=== PATIENT | female | born 1985 | race Caucasian/White ===

== ENCOUNTER 2023-08-24 13:52 | Emergency (ER) | payer OTHER, SELFPAY ==
[2023-08-24 13:57] VITALS: BP 130/78; PULSE 105; RESP 18; TEMP 36.7; O2SAT 96; BMI 30.9
[2023-08-24 14:11] LABS: Appearance Urine Cloudy (Clear); Bilirubin Urine Negative (Negative); Blood Urine 3+ (Negative); Color Urine Yellow (Yellow); Glucose Urine Negative (Negative); Ketones Urine Negative (Negative); Leukocyte Esterase Urine 1+ (Negative); Nitrite Urine Positive (Negative); Protein Urine 1+ (Negative); Specific Gravity Urine >= 1.030 (1.000-1.030); Urobilinogen Urine 0.2 (0.2-1.0)
[2023-08-24 14:21] LABS: Bacteria Urine Many; RBC Urine 25-50 (0-2); Squamous Epithelial Cell Urine Moderate (None-Few); WBC Clumps Urine Few; WBC Urine 25-50 (0-5)
--- NOTE | 2023-08-24 14:22 | CT_ITS ---
Patient: FUNMILAYO HUGHES Facility:?[facility] Patient ID:?[id number] Site Patient ID:?[id number] Site :?[id number] Study:?CT-Abdomen/Pelvis WITHOUT-08/24/2023 2:55:47 PM Ordering Physician:DEIDRE Final Report: INDICATION: COMPARISON: None available. TECHNIQUE: CT of the abdomen and pelvis without intravenous contrast. Please note that all CT scans at this facility use dose modulation, iterative reconstruction, and/or weight-based dosing when appropriate to reduce radiation dose to as low as reasonably achievable. FINDINGS: The study is performed without intravenous contrast. This limits the sensitivity of the exam for the detection bowel pathology, focal lesions of the abdominopelvic viscera and vascular pathology including significant vascular stenosis, occlusion and dissection. ABDOMEN Liver: Normal hepatic attenuation. No suspicious focal hepatic lesion. No intrahepatic biliary ductal dilatation. Gallbladder: Normal gallbladder size. Normal common duct caliber. No pericholecystic inflammatory changes. Pancreas: Normal pancreatic attenuation. No focal lesion. Normal duct caliber. No peripancreatic inflammatory changes. Spleen: Nonspecific splenomegaly. No focal splenic lesion is identified. No suspicious focal lesion. Adrenal Glands: Symmetrical adrenal glands. No focal lesion of significance. Kidneys: 5 mm obstructing right ureteral stone present just above the level of the pelvic inlet with associated mild upstream right hydroureteronephrosis. There are 2 clustered nonobstructing nephrolith in the upper pole of the right kidney measuring 2 mm. Normal bilateral renal attenuation. No suspicious focal lesion. Gastrointestinal tract: Normal caliber, attenuation and wall thickness of the gastrointestinal tract. No inflammatory changes. Normal mesentery. Normal appendix. Vascular: Normal outer wall to outer wall abdominal aortic caliber. Patency and luminal caliber of the abdominopelvic arterial and venous vasculature cannot be assessed on this noncontrast study. Additional findings: No incidental adenopathy. No significant ascites, free fluid or pneumoperitoneum. PELVIS No bladder lesion is identified. Retroflexed uterus. No abnormal free fluid. No incidental adenopathy. SKELETON AND BODY WALL Left L5 spondylolysis. LOWER THORAX Incidental flat/triangular 4 mm nodule in the right middle lobe associated with the minor fissure (series 3; image 5 and 5; 134), consistent with a benign intrapulmonary lymph node. IMPRESSION: 1. Obstructing 5 mm right ureteral stone at the level of the pelvic inlet with associated mild upstream right hydroureteronephrosis. 2. Nonobstructing right nephrolithiasis described above. 3. Nonspecific splenomegaly. Clinical correlation is recommended as to the significance of this imaging finding. The study is performed without intravenous contrast. This limits the sensitivity of the exam for the detection bowel pathology, focal lesions of the abdominopelvic viscera and vascular pathology including significant vascular stenosis, occlusion and dissection. Please note that all CT scans at this facility use dose modulation, iterative reconstruction, and/or weight-based dosing when appropriate to reduce radiation dose to as low as reasonably achievable. Dictated by Jaskaran Davis MD @ 08/24/2023 3:05:14 PM Signed by:?Jaskaran Davis MD @08/24/2023 3:05:14 PM (Electronic Signature)
[2023-08-24 14:41] LABS: Ur HCG Qualitative* Negative (Negative)
[2023-08-24] MEDS: 0.9 % SODIUM CHLORIDE 1000 ml 1,000 ML IV (14:42)
[2023-08-24 14:47] LABS: Basophils Absolute Auto 0.03 K/uL (0.00-0.30); Basophils Percent Auto 0.4 % (0.0-3.0); Eosinophils Absolute Auto 0.14 K/uL (0.00-0.50); Eosinophils Percent Auto 1.8 % (0.0-7.0); Hematocrit 35.8 % (33.0-51.0); Immature Granulocytes Abs Auto 0.05 K/uL (0.00-0.30); Immature Granulocytes Pct Auto 0.6 %; Lymphocytes Percent Auto 12.5 % (20-44); Mean Corpuscular HGB Conc 34 gm/dL (32-36); Mean Corpuscular Hemoglobin 31 pg (26-34); Mean Corpuscular Volume 92 fL (80-100); Monocytes Percent Auto 5.6 % (0.0-11.0); Neutrophils Percent Auto 79.1 % (42.0-72.0); Platelet Count* 242 K/uL (140-440); RDW Coefficient of Variation % 12.7 % (11.5-15.5); White Blood Count* 7.98 K/uL (4.50-11.00)
--- NOTE | 2023-08-24 14:47 | ED_ITS ---
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 She says that she was up at 4:00 a.m. in the morning nursing when she developed severe pain in her right mid back which wrapped around to the right upper quadrant. She says it responds well to ibuprofen but as soon as the ibuprofen starts to wear off she notices that it is still there and moderate to severe in intensity. She vomited once when the pain 1st started has not vomited since then and feels appetite is normal. No further nausea. She has not had diarrhea, normal stools. No fevers. 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 She has had a , she denies other abdominal surgeries. She says the last time she was seen at an OB visit, prior to delivery, her liver function tests were mildly elevated. She has not had other urinary symptoms such as dysuria, frequency, urgency. Pain is not pleuritic, she is not short of breath. General health otherwise good, she had some hypertension associated with this past . Medications reviewed, she does not smoke or drink. Related Data Home Medications Medication Instructions Recorded Confirmed cefdinir 300 mg capsule 300 mg PO BID 07/03/23 07/03/23 escitalopram oxalate 10 mg tablet 10 mg PO QDAY 07/03/23 08/24/23 prednisolone acetate 1 % eye 1 drp ophthalmic (eye) BID 07/03/23 08/24/23 drops,suspension (Pred Forte) valacyclovir 1 gram tablet 1,000 mg PO QDAY 07/03/23 08/24/23 (Valtrex) 08/24/23 Allergies Allergy/AdvReac Type Severity Reaction Status Date / Time acetaminophen [From Vicodin] AdvReac Intermediate Verified 08/24/23 14:04 hydrocodone [From Vicodin] AdvReac Intermediate Verified 08/24/23 14:04 Review of Systems Status of ROS: Reports: 10 or more systems reviewed and unremarkable except as noted in History and below [facility] Medical History Sinusitis ?J32.9 - Chronic sinusitis, unspecified (ICD-10) Exam Narrative: Exam Narrative: Vital signs as noted above. In general, an alert, well-appearing patient. Head: Normocephalic, atraumatic. Eyes: Pupils are equal reactive. Extraocular movements are full. Conjunctivae are normal. ENT: Mucous membranes are moist. Throat is normal. Neck: Supple without lymphadenopathy. Heart: Regular rate and rhythm. No murmur or rub. Lungs: Clear bilaterally. No increased work of breathing, crackles or wheezes. Abdomen: Soft and nondistended. She has mild mid abdominal and right upper quadrant tenderness but negative Chavez sign. Really no lower abdominal tenderness. No rebound guarding or rigidity. No CVA tenderness. Extremities: Well perfused. No edema. No calf tenderness. Pulses intact. Neurologic: Patient is alert and oriented to person and place. Speech is fluent. Face is symmetric. Moves all extremities equally. Affect: Normal. Skin: Warm and dry. Well perfused. Const: Vital Signs, click to edit/add: Vital Signs - 24 hr 08/24/23 13:57 Temperature 98.1 F Pulse Rate [Pulse Oximeter] 105 H Respiratory Rate 18 Blood Pressure [Ri ght Upper Arm] 130/78 Pulse Oximetry 96 Oxygen Delivery Me thod Room Air Documenting provider has reviewed patient's vital signs: yes Course Course ED Course: Patient presents with some right-sided abdominal and back pain of sudden onset yesterday. Diagnostic considerations include kidney stone, pyelonephritis, UTI, cholecystitis, pancreatitis, hepatitis, diverticulitis, colitis, appendicitis among others. Urinalysis obtained on arrival did show 25-50 red cells and 25-50 white blood cells. Moderate squames, there is probably a component of contamination to this. She does not have CVA tenderness, sudden onset and severity of pain seems more consistent with kidney stone versus pyelonephritis, I do think imaging is warranted to rule stone in her out. test was negative. Other labs are pending at this time. She declines need for anything for pain right now, she says she just took ibuprofen. Labs are notable for a normal white blood cell count of 8, hemoglobin of 12, mild left shift with 79% neutrophils. LFTs and metabolic panel are normal, CRP is less than 0.5. Lipase 162. CT scan by my review showed a 5 mm stone in the right ureter with some hydronephrosis. I did not see any stranding around the kidney. Read as following by Radiology:FINDINGS: The study is performed without intravenous contrast. This limits the sensitivity of the exam for the detection bowel pathology, focal lesions of the abdominopelvic viscera and vascular pathology including significant vascular stenosis, occlusion and dissection. ABDOMEN Liver: Normal hepatic attenuation. No suspicious focal hepatic lesion. No intrahepatic biliary ductal dilatation. Gallbladder: Normal gallbladder size. Normal common duct caliber. No pericholecystic inflammatory changes. Pancreas: Normal pancreatic attenuation. No focal lesion. Normal duct caliber. No peripancreatic inflammatory changes. Spleen: Nonspecific splenomegaly. No focal splenic lesion is identified. No suspicious focal lesion. Adrenal Glands: Symmetrical adrenal glands. No focal lesion of significance. Kidneys: 5 mm obstructing right ureteral stone present just above the level of the pelvic inlet with associated mild upstream right hydroureteronephrosis. There are 2 clustered nonobstructing nephrolith in the upper pole of the right kidney measuring 2 mm. Normal bilateral renal attenuation. No suspicious focal lesion. Gastrointestinal tract: Normal caliber, attenuation and wall thickness of the gastrointestinal tract. No inflammatory changes. Normal mesentery. Normal appendix. Vascular: Normal outer wall to outer wall abdominal aortic caliber. Patency and luminal caliber of the abdominopelvic arterial and venous vasculature cannot be assessed on this noncontrast study. Additional findings: No incidental adenopathy. No significant ascites, free fluid or pneumoperitoneum. PELVIS No bladder lesion is identified. Retroflexed uterus. No abnormal free fluid. No incidental adenopathy. SKELETON AND BODY WALL Left L5 spondylolysis. LOWER THORAX Incidental flat/triangular 4 mm nodule in the right middle lobe associated with the minor fissure (series 3; image 5 and 5; 134), consistent with a benign intrapulmonary lymph node. IMPRESSION: 1. Obstructing 5 mm right ureteral stone at the level of the pelvic inlet with associated mild upstream right hydroureteronephrosis. 2. Nonobstructing right nephrolithiasis described above. 3. Nonspecific splenomegaly. Clinical correlation is recommended as to the significance of this imaging finding. The study is performed without intravenous contrast. This limits the sensitivity of the exam for the detection bowel pathology, focal lesions of the abdominopelvic viscera and vascular pathology including significant vascular stenosis, occlusion and dissection. She did develop some pain here and had Toradol and feels improved. She had no vomiting here. Clinically she looks well, she is afebrile, white blood cell count and inflammatory markers reassuring. I elected to do a catheterized urine sample, this looks significantly better, she has 2+ blood, 0-2 red cells, 5-10 white blood cells. She does have few squames and moderate bacteria on a cath sample, and I have elected just to cover her with an antibiotic to be on the safe side. Have reviewed with her if she is worsening, has severe uncontrolled pain, fever, shaking chills, vomiting or other significant changes she should come back for re-evaluation. Otherwise, hydrate, strain urine, ibuprofen 400 mg plus Tylenol 1000 mg 3 times daily for baseline pain control. I prescribed oxycodone 10. And Zofran as needed for nausea. Cephalexin q.i.d. x7 days from [facility]. Vital Signs Vital signs: Initial Vital Signs Temperature 98.1 F 08/24/23 13:57 Temperature Source Temporal Artery Scan 08/24/23 13:57 Pulse Rate 105 H 08/24/23 13:57 Respiratory Rate 18 08/24/23 13:57 Blood Pressure 130/78 08/24/23 13:57 Blood Pressure Mean 95 08/24/23 13:57 Blood Pressure Position Supine 08/24/23 13:57 Pulse Oximetry 96 08/24/23 13:57 Oxygen Delivery Method Room Air 08/24/23 13:57 Vital Signs Temperature 98.1 F 08/24/23 13:57 Pulse Rate 105 H 08/24/23 13:57 Respiratory Rate 18 08/24/23 13:57 Blood Pressure 130/78 08/24/23 13:57 Pulse Oximetry 96 08/24/23 13:57 Oxygen Delivery Method Room Air 08/24/23 13:57 Temperature 98.1 F 08/24/23 13:57 Pulse Rate 105 H 08/24/23 13:57 Respiratory Rate 18 08/24/23 13:57 Blood Pressure 130/78 08/24/23 13:57 Pulse Oximetry 96 08/24/23 13:57 Oxygen Delivery Method Room Air 08/24/23 13:57 Medications Administered Medications: Discontinued Medications Generic Name Dose Route Start Last Admin Trade Name Freq PRN Reason Stop Dose Admin Sodium Chloride 1,000 mls @ 1,000 mls/hr 08/24/23 14:30 08/24/23 15:34 0.9 % Sodium Chloride 1000 Ml IV 08/24/23 15:29 Infused .Q1H ANNETTE Infusion Ketorolac Tromethamine 15 mg 08/24/23 16:01 08/24/23 16:07 Ketorolac 15 Mg/Ml Inj IVP 08/24/23 16:02 15 mg ONCE ONE Administration Medical Decision Making Lab Data Labs: Lab Results 08/24/23 08/24/23 08/24/23 Range/Units 14:00 14:23 14:34 WBC 7.98 (4.50-11.00) K/uL RBC 3.90 L (4.00-5.20) m/uL Hgb 12.0 (12.0-16.0) gm/dL Hct 35.8 (33.0-51.0) % MCV 92 (80-100) fL MCH 31 (26-34) pg MCHC 34 (32-36) gm/dL RDW Coeff of Chrissy 12.7 (11.5-15.5) % Plt Count 242 (140-440) K/uL Neut % (Auto) 79.1 H (42.0-72.0) % Lymph % (Auto) 12.5 L (20-44) % [place] % (Auto) 5.6 (0.0-11.0) % Eos % (Auto) 1.8 (0.0-7.0) % Baso % (Auto) 0.4 (0.0-3.0) % Neut # (Auto) 6.30 (1.7-7.0) K/uL Lymph # (Auto) 1.00 (0.90-2.90) K/uL [place] # (Auto) 0.40 (0.00-0.90) K/UL Eos # (Auto) 0.14 (0.00-0.50) K/uL Baso # (Auto) 0.03 (0.00-0.30) K/uL Abs Immat Gran (auto) 0.05 (0.00-0.30) K/uL Imm/Tot Granulo (auto) 0.6 % Sodium 141 (135-149) mmol/L Potassium 3.9 (3.6-5.1) mmol/L Chloride 107 (96-114) mmol/L Carbon Dioxide 24 (20-32) mmol/L Anion Gap 10 (7-15) mEq/L BUN 16 (5-24) mg/dL Creatinine 0.6 (0.5-1.5) mg/dL Estimated Creat Clear 111.93 Estimated GFR 119 ml/min Glucose 89 (60-115) mg/dL Calcium 9.3 (8.4-10.6) mg/dL Total Bilirubin 0.7 (0.1-1.5) mg/dL Direct Bilirubin 0.2 (0.0-0.5) mg/dL AST 22 (12-35) U/L ALT 24 (4-35) U/L Alkaline Phosphatase 68 (40-150) U/L C-Reactive Protein < 0.5 L (0.5-1.0) mg/dL Total Protein 7.0 (6.0-8.3) g/dL Albumin 4.3 (3.3-5.0) g/dL Lipase 162 (23-300) U/L Urine Color Yellow (Yellow) Urine Appearance Cloudy A (Clear) Urine pH 6.0 (5.0-8.5) Ur Specific [place] >= 1.030 (1.000-1.030) Urine Protein 1+ A (Negative) Urine Glucose (UA) Negative (Negative) Urine Ketones Negative (Negative) Urine Blood 3+ A (Negative) Urine Nitrite Positive A (Negative) Urine Bilirubin Negative (Negative) Urine Urobilinogen 0.2 (0.2-1.0) Ur Leukocyte Esterase 1+ A (Negative) Urine RBC 25-50 A (0-2) Urine WBC 25-50 A (0-5) Urine WBC Clumps Few A (None) Ur Squamous Epith Cells Moderate A (None-Few) Urine Bacteria Many A (None) Urine HCG, Qual Negative (Negative) 08/24/23 Range/Units 15:57 WBC (4.50-11.00) K/uL RBC (4.00-5.20) m/uL Hgb (12.0-16.0) gm/dL Hct (33.0-51.0) % MCV (80-100) fL MCH (26-34) pg MCHC (32-36) gm/dL RDW Coeff of Chrissy (11.5-15.5) % Plt Count (140-440) K/uL Neut % (Auto) (42.0-72.0) % Lymph % (Auto) (20-44) % [place] % (Auto) (0.0-11.0) % Eos % (Auto) (0.0-7.0) % Baso % (Auto) (0.0-3.0) % Neut # (Auto) (1.7-7.0) K/uL Lymph # (Auto) (0.90-2.90) K/uL [place] # (Auto) (0.00-0.90) K/UL Eos # (Auto) (0.00-0.50) K/uL Baso # (Auto) (0.00-0.30) K/uL Abs Immat Gran (auto) (0.00-0.30) K/uL Imm/Tot Granulo (auto) % Sodium (135-149) mmol/L Potassium (3.6-5.1) mmol/L Chloride (96-114) mmol/L Carbon Dioxide (20-32) mmol/L Anion Gap (7-15) mEq/L BUN (5-24) mg/dL Creatinine (0.5-1.5) mg/dL Estimated Creat Clear Estimated GFR ml/min Glucose (60-115) mg/dL Calcium (8.4-10.6) mg/dL Total Bilirubin (0.1-1.5) mg/dL Direct Bilirubin (0.0-0.5) mg/dL AST (12-35) U/L ALT (4-35) U/L Alkaline Phosphatase (40-150) U/L C-Reactive Protein (0.5-1.0) mg/dL Total Protein (6.0-8.3) g/dL Albumin (3.3-5.0) g/dL Lipase (23-300) U/L Urine Color Yellow (Yellow) Urine Appearance Clear (Clear) Urine pH 6.0 (5.0-8.5) Ur Specific [place] 1.025 (1.000-1.030) Urine Protein Negative (Negative) Urine Glucose (UA) Negative (Negative) Urine Ketones Negative (Negative) Urine Blood 2+ A (Negative) Urine Nitrite Positive A (Negative) Urine Bilirubin Negative (Negative) Urine Urobilinogen 0.2 (0.2-1.0) Ur Leukocyte Esterase 1+ A (Negative) Urine RBC 0-2 (0-2) Urine WBC 5-10 A (0-5) Urine WBC Clumps (None) Ur Squamous Epith Cells Few (None-Few) Urine Bacteria Moderate A (None) Urine HCG, Qual (Negative) Discharge Plan Discharge Clinical Impression: Calculus of left ureter Patient Disposition: Home, Self-Care Condition: Stable Instructions: Ureteral Stones (ED) Additional Instructions: Push fluids, strain urine. Ibuprofen 3 times daily as needed. Oxycodone if needed for uncontrolled pain, Zofran if needed for nausea/vomiting. Antibiotic as prescribed. If you have high fevers, shaking chills, vomiting, severe uncontrolled pain, return to the emergency department at any time. Otherwise, I would recommend calling to make follow-up appointment with Urology. There is pr obably a 50 50 chance that this stone will pass without intervention. You can call the [facility], for help scheduling follow-up with Urology. Prescriptions: No Action cefdinir 300 mg capsule 300 mg PO BID escitalopram oxalate 10 mg tablet 10 mg PO QDAY valacyclovir [Valtrex] 1 gram tablet 1,000 mg PO QDAY prednisolone acetate [Pred Forte] 1 % drops,suspension 1 drp ophthalmic (eye) BID Follow Up/Referrals: Mary Martel PA-C [Primary Care Provider] - Stand Alone Forms: [facility] Info Instructions
[2023-08-24 14:48] LABS: Slide Review Reflex No
[2023-08-24 15:02] LABS: Albumin* 4.3 g/dL (3.3-5.0)
[2023-08-24 15:03] LABS: Chloride* 107 mmol/L (96-114); Potassium* 3.9 mmol/L (3.6-5.1); Sodium* 141 mmol/L (135-149)
[2023-08-24 15:05] LABS: Alanine Aminotransferase* 24 U/L (4-35); Alkaline Phosphatase* 68 U/L (40-150); Aspartate Amino Transferase* 22 U/L (12-35); Bilirubin Direct* 0.2 mg/dL (0.0-0.5); Bilirubin Total* 0.7 mg/dL (0.1-1.5); Creatinine* 0.6 mg/dL (0.5-1.5); Est. Creatinine Clearance* 111.93; Estimated Glomerular Filt Rate 119 ml/min; Lipase* 162 U/L (23-300)
[2023-08-24 15:06] LABS: Anion Gap 10 mEq/L (7-15); Blood Urea Nitrogen* 16 mg/dL (5-24); Carbon Dioxide* 24 mmol/L (20-32); Glucose* 89 mg/dL (60-115)
[2023-08-24 15:07] LABS: Calcium* 9.3 mg/dL (8.4-10.6)
[2023-08-24 15:11] LABS: C Reactive Protein* < 0.5 mg/dL (0.5-1.0)
[2023-08-24 16:04] LABS: Appearance Urine Clear (Clear); Bilirubin Urine Negative (Negative); Blood Urine 2+ (Negative); Color Urine Yellow (Yellow); Glucose Urine Negative (Negative); Ketones Urine Negative (Negative); Leukocyte Esterase Urine 1+ (Negative); Nitrite Urine Positive (Negative); Protein Urine Negative (Negative); Specific Gravity Urine 1.025 (1.000-1.030); Urobilinogen Urine 0.2 (0.2-1.0)
[2023-08-24] MEDS: KETOROLAC 15 MG/ML inj IVP (16:07)
[2023-08-24 16:25] LABS: Bacteria Urine Moderate; RBC Urine 0-2 (0-2); Squamous Epithelial Cell Urine Few (None-Few)
== END 2023-08-24 16:55 | disposition home or self-care (01) ==
PROVIDERS: Emergency Provider Emergency Medicine; PCP Physician Assistant Medical
DX: N20.1 Calculus of ureter (principal)
CPT/HCPCS: 36415; 74176; 80048; 80076; 81001; 81025; 83690; 85025; 86140; 87086; 87186; 96374; 99283; 99284; J1885; J7030

== ENCOUNTER 2023-08-24 22:52 | Emergency (ER) | payer OTHER, SELFPAY ==
[2023-08-24 23:05] VITALS: BP 117/78; PULSE 150; RESP 16; TEMP 37.2; O2SAT 98; BMI 30.9
[2023-08-24 23:52] VITALS: PULSE 126; RESP 16; O2SAT 98
--- NOTE | 2023-08-25 00:21 | ED.GENADULT ---
HPI - General Adult General Chief complaint: Abdominal Pain Stated complaint: kidney stones/fever Time Seen by Provider: 08/24/23 23:54 Source: patient and family Mode of arrival: ambulatory Limitations: no limitations History of Present Illness HPI narrative: Stroke female presents emergency department for evaluation of persistent abdominal pain. evaluated in the ED about 10 hours ago, notes reviewed. Afebrile at that time, no significant leukocytosis. Diagnosed with a 5 mm kidney stone, mid to distal right ureter. Was discharged on oxycodone and Keflex for antibiotic prophylaxis. She has only taken 1 dose of the Keflex. This evening, she had severe pain again, came in a large wave. Associated with persistent vomiting and she did have a fever. She then had about an hour of shaking chills and comes back into the emergency department as she was instructed to do so if these symptoms occurred according to her discharge paperwork. Symptoms have improved markedly since that time. She is 3 [age] months and is breast-feeding. No dizziness or syncope. Has not noticed any christie dysuria. No GI changes. Previous notes reviewed. Past medical history unchanged from earlier visit, medications unchanged. No antibiotic allergies. ROS notable for the urinary and generalized symptoms as described above, otherwise denies new symptoms times 12 systems. Related Data Home Medications Medication Instructions Recorded Confirmed cefdinir 300 mg capsule 300 mg PO BID 07/03/23 07/03/23 escitalopram oxalate 10 mg tablet 10 mg PO QDAY 07/03/23 08/24/23 prednisolone acetate 1 % eye 1 drp ophthalmic (eye) BID 07/03/23 08/24/23 drops,suspension (Pred Forte) valacyclovir 1 gram tablet 1,000 mg PO QDAY 07/03/23 08/24/23 (Valtrex) 08/24/23 Previous Rx's Medication Instructions Recorded oxycodone 5 mg tablet 5 mg PO Q6H PRN pain #10 tabs 08/25/23 tamsulosin 0.4 mg capsule 0.4 mg PO DAILY #10 caps 08/25/23 Allergies Allergy/AdvReac Type Severity Reaction Status Date / Time acetaminophen [From Vicodin] AdvReac Intermediate Verified 08/24/23 14:04 hydrocodone [From Vicodin] AdvReac Intermediate Verified 08/24/23 14:04 [facility] Medical History Sinusitis ?J32.9 - Chronic sinusitis, unspecified (ICD-10) Social History Smoking Status: Never smoker Do you use any of these nicotine containing products: None Second hand tobacco smoke exposure: No How often do you have a drink containing alcohol: never How often do you have six or more drinks on one occasion: Never AUDIT-C Alcohol total score: 0 Non-prescribed substance use: denies use Exam Const: Vital Signs, click to edit/add: Vital Signs - 24 hr 08/24/23 23:05 08/24/23 23:52 Temperature 98.9 F Pulse Rate [Pulse Oximeter] 150 H 126 H Respiratory Rate 16 16 Blood Pressure [Ri ght Upper Arm] 117/78 Pulse Oximetry 98 98 Oxygen Delivery Me thod Room Air Room Air Common normals: no apparent distress General appearance: cooperative and well kempt HENMT: Common normals: normocephalic Head and scalp: normocephalic Face and sinus: normal facial exam Mouth: oral and palatal mucosa normal Throat: posterior oropharynx normal Eye: Common normals: conjunctivae normal General eye: normal appearance of both eyes Conjunctiva: conjunctiva(e) normal Neck & C-Spine: Common normals: full ROM and no lymphadenopathy Resp: Common normals: normal respiratory effort, no use of accessory muscles and clear to auscultation bilaterally Effort & inspection: able to speak in complete sentences Auscultation: clear to auscultation bilaterally Cardio: Common normals: regular rate, regular rhythm, S1 normal heart sound and S2 normal heart sound Rate: regular rate Rhythm: regular rhythm Heart sounds: S1 normal and S2 normal GI: Common normals: Normal to inspection, nondistended, normoactive bowel sounds present, soft to palpation, no hepatosplenomegaly and no masses Palpation: soft and no hepatosplenomegaly : Other: Back & Pelvis: Other: Moderate right-sided CVA tenderness and SI area. Visually normal. Extremity: Common normals: normal capillary refill Psych: Common normals: speech normal Appearance: well kempt Attitude: engaged Activity/motor behavior: appropriate eye contact Speech: normal speech Insight: insight good Judgement: judgment good Skin: Common normals: no rashes or lesions noted General skin exam: no rashes or lesions noted Course Course ED Course: Fever in setting of known kidney stone. On antibiotics for less than 12 hours. Fever now resolved. I would like to double check to see if her white count is increasing. Urine culture has already been started. Will give Rocephin 1 g IV x1 and a L of normal saline as she did have vomiting for an hour. Repeat Toradol dose and start Flomax. Consider Zofran. Await clinical response. Reevaluation(s) Reevaluation #1: Wave of pain increased again, will give Dilaudid and Zofran. Patient has urinated, is passing some Sharon granules now. Time of Reevaluation #2: 01:37 Reevaluation #2: Patient feeling much better after Dilaudid and Zofran. Plan care discussed. Will also Will start patient on Toradol and Flomax as it may help reduce spasm. Interim refill of oxycodone given. Will continue on Keflex as prescribed. Alarm symptoms reviewed, see discharge instructions. Vital Signs Vital signs: Initial Vital Signs Temperature 98.9 F 08/24/23 23:05 Temperature Source Temporal Artery Scan 08/24/23 23:05 Pulse Rate 150 H 08/24/23 23:05 Respiratory Rate 16 08/24/23 23:05 Blood Pressure 117/78 08/24/23 23:05 Blood Pressure Mean 91 08/24/23 23:05 Blood Pressure Position Sitting 08/24/23 23:05 Pulse Oximetry 98 08/24/23 23:05 Oxygen Delivery Method Room Air 08/24/23 23:05 Vital Signs Temperature 98.9 F 08/24/23 23:05 Pulse Rate 150 H 08/24/23 23:05 Respiratory Rate 16 08/24/23 23:05 Blood Pressure 117/78 08/24/23 23:05 Pulse Oximetry 98 08/24/23 23:05 Oxygen Delivery Method Room Air 08/24/23 23:05 Temperature 98.9 F 08/24/23 23:05 Pulse Rate 126 H 08/24/23 23:52 Respiratory Rate 16 08/24/23 23:52 Blood Pressure 117/78 08/24/23 23:05 Pulse Oximetry 98 08/24/23 23:52 Oxygen Delivery Method Room Air 08/24/23 23:52 Medications Administered Medications: Generic Name Dose Route Start Last Admin Trade Name Yogiq PRN Reason Stop Dose Admin Hydromorphone HCl 0.5 mg 08/25/23 00:53 08/25/23 01:16 Hydromorphone 0.5 Mg/0.5 Ml Inj IVP 08/25/23 00:54 0.5 mg ONCE ONE Administration Ondansetron HCl 4 mg 08/25/23 00:53 08/25/23 01:17 Ondansetron 2 Mg/Ml Inj IVP 08/25/23 00:54 4 mg ONCE ONE Administration Discontinued Medications Generic Name Dose Route Start Last Admin Trade Name Freq PRN Reason Stop Dose Admin Ceftriaxone Sodium 1 gm/ 100 mls @ 200 mls/hr 08/25/23 00:17 08/25/23 01:05 Sodium Chloride IVPB 08/25/23 00:18 Infused ONCE ONE Infusion Sodium Chloride 1,000 mls @ 1,000 mls/hr 08/25/23 00:25 08/25/23 01:05 0.9 % Sodium Chloride 1000 Ml IV 08/25/23 01:24 1,000 mls/hr .Q1H ANNETTE Administration Ketorolac Tromethamine 15 mg 08/25/23 00:17 08/25/23 00:30 Ketorolac 15 Mg/Ml Inj IVP 08/25/23 00:18 15 mg ONCE ONE Administration Tamsulosin HCl 0.4 mg 08/25/23 00:18 08/25/23 00:30 Tamsulosin Hcl 0.4 Mg Capsule PO 08/25/23 00:19 0.4 mg DAILY ONE Administration Medical Decision Making Medical Records Medical records reviewed: Yes I reviewed the patient's medical records Lab Data Lab results reviewed: Yes I reviewed the patient's lab results Lab results narrative: No leukocytosis, overall reassuring. Increasing CRP not unexpected. Labs: Lab Results 08/25/23 Range/Units 00:00 WBC 4.79 (4.50-11.00) K/uL RBC 3.80 L (4.00-5.20) m/uL Hgb 11.7 L (12.0-16.0) gm/dL Hct 34.9 (33.0-51.0) % MCV 92 (80-100) fL MCH 31 (26-34) pg MCHC 34 (32-36) gm/dL RDW Coeff of Chrissy 12.8 (11.5-15.5) % Plt Count 199 (140-440) K/uL Neut % (Auto) 94.0 H (42.0-72.0) % Lymph % (Auto) 4.2 L (20-44) % [place] % (Auto) 0.6 (0.0-11.0) % Eos % (Auto) 0.4 (0.0-7.0) % Baso % (Auto) 0.2 (0.0-3.0) % Neut # (Auto) 4.50 (1.7-7.0) K/uL Lymph # (Auto) 0.20 L (0.90-2.90) K/uL [place] # (Auto) 0.00 (0.00-0.90) K/UL Eos # (Auto) 0.02 (0.00-0.50) K/uL Baso # (Auto) 0.01 (0.00-0.30) K/uL Abs Immat Gran (auto) 0.03 (0.00-0.30) K/uL Imm/Tot Granulo (auto) 0.6 % Sodium 137 (135-149) mmol/L Potassium 3.4 L (3.6-5.1) mmol/L Chloride 107 (96-114) mmol/L Carbon Dioxide 24 (20-32) mmol/L Anion Gap 6 L (7-15) mEq/L BUN 17 (5-24) mg/dL Creatinine 0.7 (0.5-1.5) mg/dL Estimated Creat Clear 95.94 Estimated GFR 115 ml/min Glucose 110 (60-115) mg/dL Calcium 9.1 (8.4-10.6) mg/dL C-Reactive Protein 3.2 H (0.5-1.0) mg/dL Discharge Plan Discharge Clinical Impression: Calculus, ureteral Patient Disposition: Home w/ Parent or Adult Condition: Stable Instructions: Ureteral Stones (ED) Additional Instructions: as we discussed, there are no significant signs of infection at this time. Your given a dose of IV Rocephin to help get ahead of any possible early infection that is not showing up yet in the labs. We will also be culturing your urine. Continue taking your oral antibiotic as prescribed. I am giving you a new prescription for Toradol, anti-inflammatory pain medication that is not narcotic. I want you to automatically take this every 6 hours for at least the next 48 hours then you may decrease it to as needed. If you Do passed the kidney stone, you may discontinue all of these medications. I would also recommend that you take the anti nausea medication Zofran every 6 hours automatically for the next 24-48 hours as well. This will reduce the chance of vomiting and dehydration. I would also take Tylenol 1000 mg every 6 hours. So in summary, every 6 hours he will take your antibiotic, 1000 mg of Tylenol, your Zofran and 10 mg of Toradol. Hopefully, this keeps the pain as a dull roar. You may also take the oxycodone half to 1 tablet up to every 3 hours if needed. Unfortunately, it may not give you adequate relief of the large pain spasms but it may at least help take the edge off. I would plan to take half a tablet after working a full tablet at bedtime unless your pain is very well controlled. I do not have concerns regarding any of those medications and breast-feeding when used at these doses. If you are needing the oxycodone, Full pill more than every 6 hours, I would consider jumping that breast milk, but it is still unlikely to cause problems even at that concentration. I have also sent some Flomax to help reduce spasm and potentially help the stone pass more easily to your pharmacy, take this once daily. Your next dose will be night. I also sent a small refill of the oxycodone in case you needs this. You may still have fevers today, but any fevers after Tuesday morning should be re-evaluated. Remember to drink lots of fluids and move frequently to help move the stone along. Activity Level: Activity as Tolerated Discharge Diet: Regular Prescriptions: New tamsulosin 0.4 mg capsule 0.4 mg PO DAILY Qty: 10 0RF oxycodone 5 mg tablet 5 mg PO Q6H PRN (Reason: pain) Qty: 10 0RF No Action cefdinir 300 mg capsule 300 mg PO BID escitalopram oxalate 10 mg tablet 10 mg PO QDAY valacyclovir [Valtrex] 1 gram tablet 1,000 mg PO QDAY prednisolone acetate [Pred Forte] 1 % drops,suspension 1 drp ophthalmic (eye) BID Follow Up/Referrals: Mary Martel PA-C [Primary Care Provider] - Stand Alone Forms: [employer] Info Instructions
[2023-08-25 00:28] LABS: Hematocrit 34.9 % (33.0-51.0); Hemoglobin* 11.7 gm/dL (12.0-16.0); Mean Corpuscular Hemoglobin 31 pg (26-34); Mean Corpuscular Volume 92 fL (80-100); White Blood Count* 4.79 K/uL (4.50-11.00)
[2023-08-25 00:29] LABS: Basophils Absolute Auto 0.01 K/uL (0.00-0.30); Basophils Percent Auto 0.2 % (0.0-3.0); Eosinophils Absolute Auto 0.02 K/uL (0.00-0.50); Eosinophils Percent Auto 0.4 % (0.0-7.0); Immature Granulocytes Abs Auto 0.03 K/uL (0.00-0.30); Immature Granulocytes Pct Auto 0.6 %; Lymphocytes Percent Auto 4.2 % (20-44); Mean Corpuscular HGB Conc 34 gm/dL (32-36); Monocytes Percent Auto 0.6 % (0.0-11.0); Platelet Count* 199 K/uL (140-440); RDW Coefficient of Variation % 12.8 % (11.5-15.5)
[2023-08-25 00:30] LABS: Slide Review Reflex No
[2023-08-25] MEDS: TAMSULOSIN HCL 0.4 MG CAPSULE PO (00:30)
[2023-08-25] MEDS: cefTRIAXone 1 GM in 0.9 % SODIUM CHLORIDE Mini-bag 100 ML IVPB (00:30)
[2023-08-25] MEDS: KETOROLAC 15 MG/ML inj IVP (00:30)
[2023-08-25 00:33] LABS: Chloride* 107 mmol/L (96-114)
[2023-08-25 00:34] LABS: Potassium* 3.4 mmol/L (3.6-5.1); Sodium* 137 mmol/L (135-149)
[2023-08-25 00:36] LABS: Creatinine* 0.7 mg/dL (0.5-1.5); Est. Creatinine Clearance* 95.94; Estimated Glomerular Filt Rate 115 ml/min
[2023-08-25 00:37] LABS: Anion Gap 6 mEq/L (7-15); Blood Urea Nitrogen* 17 mg/dL (5-24); Carbon Dioxide* 24 mmol/L (20-32); Glucose* 110 mg/dL (60-115)
[2023-08-25 00:38] LABS: Calcium* 9.1 mg/dL (8.4-10.6)
[2023-08-25 00:40] LABS: C Reactive Protein* 3.2 mg/dL (0.5-1.0)
[2023-08-25] MEDS: 0.9 % SODIUM CHLORIDE 1000 ml 1,000 ML IV (01:05)
[2023-08-25] MEDS: HYDROmorphone 0.5 mg/0.5 ml inj IVP (01:16)
[2023-08-25] MEDS: ONDANSETRON 2 MG/ML inj 4 MG IVP (01:17)
--- NOTE | 2023-08-26 16:01 | W.ED.CHARTNO ---
ED Chart Note Chart Note Details Date: 08/26/23 Details: 3:21 p.m.: Was given a positive urine culture with E coli, pansensitive on this patient. She had a left obstructing kidney stone at the pelvic inlet, 5 mm. She had seen Dr. Richardson on August 23, was back on August 24, white blood count was normal. She came back in for reported fever on the which had resolved. She did get a dose of IV Rocephin during that 2nd ED visit. She is feeling fine, no further fevers, is having pain but not symptoms of infection. She is on the Keflex. Did review with her the urine culture, I will try to make contact with Urology. She states she has called twice but has not heard back from anyone. At 3:51 p.m., did speak with Dr. Meliton Whitehead through [facility] urology, at [facility]. He will be doing a virtual visit. I did call Violette back after that, she has a virtual visit scheduled for 445 today already. Have asked Radiology to push the CT images to the urologist at [place].
== END 2023-08-25 02:17 | disposition home or self-care (01) ==
PROVIDERS: Emergency Provider Family Medicine; PCP Physician Assistant Medical
DX: N20.1 Calculus of ureter (principal)
CPT/HCPCS: 36415; 80048; 85025; 86140; 96365; 96375; 99284; A9270; J0696; J1170; J1885; J2405; J7030